=== PATIENT | female | born 1985 | race African-American/Black ===

== ENCOUNTER 2023-05-16 17:58 | Emergency (ER) | payer BC ==
[2023-05-16 21:06] LABS: SARS-CoV-2 NAA Rapid Test Not Detected (NotDetected)
== END 2023-05-16 21:30 | disposition home or self-care (01) ==
LOC: CSHERS 17:58
DX: J06.9 Acute upper respiratory infection, unspecified (principal); J02.9 Acute pharyngitis, unspecified; Z20.822 Contact with and (suspected) exposure to COVID-19
CPT/HCPCS: 99283